=== PATIENT | male | born 1970 | race Caucasian/White ===

== ENCOUNTER 2020-10-25 16:49 | Emergency (ER) | payer OTHER, SELFPAY ==
[2020-10-25] VITALS (13 sets, daily range): BP systolic 119–138; BP diastolic 64–84; PULSE 66–74; TEMP 36.5; O2SAT 94–99
--- NOTE | 2020-10-25 17:45 | DI.CT_ITS ---
Exam(s) CT HEAD CERVICAL SPINE WO EXAM: CT HEAD CERVICAL SPINE WO COMPARISON: No exams were available for comparison FINDINGS: CT examination of the cervical spine was performed without contrast administration. There is a mildly displaced mildly comminuted fracture of the right posterior arch of C1. There is a moderately displaced mildly comminuted fracture of the right lateral mass of C1. No additional frac ture seen. Intervertebral disc spaces are well maintained. Tracheolaryngeal structures appear intact. No cervical mass or adenopathy. Noncontrast cranial CT was performed. Ventricular system is normal in appearance. No evidence of acute intracranial hemorrhage, mass effect, or midline shift. No calvarial fracture. The orbital and temporal bone structures appear intact. Visualized mastoid air cells and paranasal sinuses appear clear. There is minimally displaced nasal bone fracture of uncertain age. IMPRESSION: C1 fracture involving right lateral mass and right posterior arch. This is an unstable fracture. No additional significant injury identified. No evidence of acute intracranial injury. RADIATION DOSE DELIVERED: 1,513.45mGy.cm Total DLP 1,513.45mGy.cm Total DLP CTDIvol DATA REPOSITORY: All CT scans at this facility are submitted to the National Radiology Data Registry (NRDR) Dose Index Registry (DIR) with the [employer] ([employer]). RADIATION OPTIMIZATION: All CT scans at this facility use at least one of these dose optimization te chniques: automated exposure control; mA and/or kV adjustment per patient size (includes targeted exa ms where dose is matched to clinical indication); or iterative reconstruction.
--- NOTE | 2020-10-25 17:45 | DI.CT_ITS ---
Exam(s) CT THORACIC LUMBAR SPINE WO CT CHEST/ABD/PEL W EXAM: CT CHEST/ABD/PEL W TECHNIQUE: CT examination of the chest, abdomen, and pelvis was performed with bolus infusion of 100 cc of Omnipaque 350. COMPARISON: CT CT BRAIN NECK CTA from 10/25/[address] THORACIC LUMBAR SPINE WO from 10/25/[address] THORACIC LUMBAR SPINE WO from 10/25/2020 FINDINGS: There is no evidence of a thoracic vascular injury. The lungs are clear. No pneumothorax or pleural effusion. No mediastinal hematoma. No adenopathy in the chest. Tracheobronchial tree appears intact. The liver, spleen, and pancreas appear normal. Gallbladder and bile ducts are normal. Adrenals and kidneys are unremarkable. No evidence of urinary tract injury or obstruction. No abdominal or pelvic vascular injury seen. No abdominal or pelvic adenopathy. No significant abdomi nal wall hernia or hematoma. No evidence of bowel injury. No fracture identified in the region surveyed. Additional spine reconstructions were obtained for the thoracic and lumbar region. There are marked degenerative changes of the thoracic and lumbar spine, particularly in the lumbar region. There is n o evidence of acute fracture or dislocation. Incidental note is made of prior fixation of the proximal left femur. IMPRESSION: No evidence of acute injury of the chest, abdomen, or pelvis. RADIATION DOSE DELIVERED: Total DLP Total DLP Total DLP CTDIvol DATA REPOSITORY: All CT scans at this facility are submitted to the National Radiology Data Registry (NRDR) Dose Index Registry (DIR) with the [employer] ([employer]). RADIATION OPTIMIZATION: All CT scans at this facility use at least one of these dose optimization te chniques: automated exposure control; mA and/or kV adjustment per patient size (includes targeted exa ms where dose is matched to clinical indication); or iterative reconstruction.
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
[2020-10-25] MEDS: Normal Saline 1,000 ML 1000 ML IV (18:27)
[2020-10-25] MEDS: MORPHine 4 MG/ML SYR IVP ×2 (18:28→20:41)
[2020-10-25 18:32] LABS: Abs Immature Grans 0.04 10^3/uL (0.0-0.06); Absolute Basophil Count 0.06 10^3/uL (0.0-0.2); Absolute Eosinophil Count 0.05 10^3/uL (0.0-0.7); Absolute Lymphocyte Count 1.09 10^3/uL (1.2-3.4); Absolute Monocyte Count 0.55 10^3/uL (0.1-0.8); Basophils % 0.5; Eosinophils % 0.4; HCT 40.6 % (40.0-50.0); HGB 13.9 g/dL (13.5-17.5); Immature Grans % 0.3; Lymphocytes % 9.2; MCH 30.1 pg (27.0-33.0); MCHC 34.2 % (32.0-36.0); MCV 87.9 fL (80-95); MPV 10.4 fL (8.0-11.0); Monocytes % 4.6; Nucleated RBC 0 %; Platelet Count 179 10^3/uL (130-400); RBC 4.62 10^6/uL (4.36-5.78); RDW 12.7 % (11.8-14.1); WBC 11.86 10^3/uL (4.4-10.8)
[2020-10-25 18:33] LABS: Absolute Neutrophil Count 10.08 10^3/uL (1.2-6.7)
[2020-10-25 18:57] LABS: ALT 34 U/L (16-63); AST 33 U/L (15-37); Albumin 4.5 g/dL (3.4-5.0); Alkaline Phosphatase 45 U/L (46-116); BUN 14 mg/dL (7-18); Bilirubin, Total 0.8 mg/dL (0.2-1.0); CREATININE 0.8 mg/dL (0.70-1.30); Calcium 9.7 mg/dL (8.5-10.1); Chloride 101 mmol/L (98-107); Glucose 120 mg/dL (74-106); Magnesium 1.9 mg/dL (1.8-2.4); Sodium 139 mmol/L (136-145); Total Protein 7.6 g/dL (6.4-8.2)
[2020-10-25 18:59] LABS: Troponin I < 0.05 ng/mL (<0.06)
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
[2020-10-25] MEDS: Normal Saline - Diluent 50 ML VIAL IV ×2 (22:45→22:47)
[2020-10-25] MEDS: Omnipaque 350 MG/ML 100 ML BTL IJ ×2 (22:45→22:46)
== END 2020-10-25 20:00 ==
PROVIDERS: Physician Assistant; Emergency Provider Registered Nurse Emergency
DX: S12.090A Other displaced fracture of first cervical vertebra, initial encounter for closed fracture (principal); V19.88XA Pedal cyclist (driver) (passenger) injured in other specified transport accidents, initial encounter
CPT/HCPCS: 36415; 70496; 70498; 74177; 80053; 96361; 96374; 96376; 99285; 70450; 71260; 72125; 72128; 72131; 83735; 84484; 85025; 99284; J2270; J3490